=== PATIENT | female | born 2000 | race Hispanic/Latino ===

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

== ENCOUNTER 2022-04-16 13:06 | Emergency (ER) | payer OTHER, SELFPAY | END 2022-04-16 14:09 | disposition home or self-care (01) | LOC: NAV ERS 13:06 | DX: J06.9 Acute upper respiratory infection, unspecified (principal) | CPT/HCPCS: 99283 ==

== ENCOUNTER 2022-05-27 12:54 | Emergency (ER) | payer SELFPAY ==
[2022-05-27] MEDS ORDERED: Acetaminophen 500 MG TAB ONE (13:22)
== END 2022-05-27 14:33 | disposition home or self-care (01) ==
LOC: NAV ERS 12:54
DX: O98.511 Other viral diseases complicating pregnancy, first trimester (principal); J10.1 Influenza due to other identified influenza virus with other respiratory manifestations; Z3A.01 Less than 8 weeks gestation of pregnancy
CPT/HCPCS: 87804; 99283

== ENCOUNTER 2025-03-21 12:13 | Emergency (ER) | payer SELFPAY ==
[2025-03-21] MEDS ORDERED: Ibuprofen 800 MG TAB ONE (12:47)
== END 2025-03-21 13:25 | disposition home or self-care (01) ==
LOC: NAV ERS 12:13
DX: S29.012A Strain of muscle and tendon of back wall of thorax, initial encounter (principal); F17.290 Nicotine dependence, other tobacco product, uncomplicated; X50.0XXA Overexertion from strenuous movement or load, initial encounter
CPT/HCPCS: 99283